=== PATIENT | female | born 1995 | race Caucasian/White ===

== ENCOUNTER 2017-04-09 05:18 | Inpatient (IN) | payer MEDICAID ==
[2017-04-09] MEDS ORDERED: PITOCIN 30 UNITS/ LR 500 ML 500 ML IV ONE (05:26)
[2017-04-09] MEDS ORDERED: OMNIPEN 2 GM / NACL 100ML 100 ML ONE (05:26)
[2017-04-09] MEDS ORDERED: Lactated Ringers 1,000 ML IV ONE (05:26)
[2017-04-09] MEDS ORDERED: STADOL 2 MG ONE (05:26)
[2017-04-09] MEDS: Lactated Ringers 1,000 ML IV SCH (05:30)
[2017-04-09] MEDS ORDERED: STADOL 2 MG IV PRN (05:46)
[2017-04-09] MEDS ORDERED: OMNIPEN 2 GM / NACL 100ML 100 ML IV ONE (05:46)
[2017-04-09] MEDS ORDERED: XYLOCAINE 1% HCL 20 ML MDV IJ PRN (05:46)
[2017-04-09] MEDS ORDERED: PITOCIN 30 UNITS/ LR 500 ML 500 ML IV SCH (06:00)
[2017-04-09 06:11] LABS: BASOPHIL % 0.2 % (0.0-0.4); Granulocytes % 66.5 % (36.0-66.0); Lymphocytes % 26.7 % (24.0-44.0); Mean Cell Volume 86.4 fl (78-100); Mean Corpuscular Hemoglobin 27.9 pg (26-32); Mean Platelet Volume 9.6 fl (6-9.5); Monocytes % 5.6 % (0.0-12.0); Platelet Count 335 K/mm3 (150-450); Red Blood Count 4.34 M/mm3 (4.1-5.4); Red Cell Distribution Width 13.4 % (11.5-14.0); White Blood Count 11.3 K/mm3 (4.0-10.5)
[2017-04-09 06:43] LABS: ALBUMIN 2.5 g/dL (3.4-5.0); ALKALINE PHOSPHATASE 241 U/L (46-116); ANION GAP 16.9 MEQ/L (5-15); BLOOD UREA NITROGEN 8 mg/dL (9-20); CHLORIDE 105 mEq/L (98-107); Carbon Dioxide 20.1 mEq/L (21-32); Glucose 86 MG/DL (70-110); Potassium 3.7 mEq/L (3.5-5.1); SGOT/AST 45 U/L (15-37); SGPT/ALT 45 U/L (12-78); SODIUM 138 mEq/L (136-145); Total Protein 6.8 gm/dL (6.4-8.2)
[2017-04-09] MEDS ORDERED: MOTRIN 400 MG ONE (07:03)
[2017-04-09] MEDS ORDERED: NORCO 5/325 MG PO PRN (07:04)
[2017-04-09] MEDS ORDERED: LANSINOH 40 GM TOP PRN (07:04)
[2017-04-09] MEDS ORDERED: Anucort-HC SUPPOSITORY PR PRN (07:04)
[2017-04-09] MEDS ORDERED: CORTISONE 1% CREAM TP PRN (07:04)
[2017-04-09] MEDS ORDERED: Dermoplast Spray TP PRN (07:04)
[2017-04-09] MEDS ORDERED: Dulcolax 10 MG SUPP PR PRN (07:04)
[2017-04-09] MEDS ORDERED: Mylicon 80MG PO PRN (07:04)
[2017-04-09] MEDS: MOTRIN 400 MG PO PRN ×2 (07:11→20:15)
[2017-04-09] MEDS: TYLENOL EXTRA STRENGTH 500 MG PO PRN ×2 (12:26→20:18)
[2017-04-09] MEDS: Colace 100 MG PO SCH (23:32)
[2017-04-10 05:36] LABS: BASOPHIL % 0.2 % (0.0-0.4); Eosinophil % 1.2 % (0.00-5.0); Granulocytes % 63.7 % (36.0-66.0); Lymphocytes % 29.1 % (24.0-44.0); Mean Cell Volume 88.4 fl (78-100); Mean Platelet Volume 9.5 fl (6-9.5); Monocytes % 5.8 % (0.0-12.0); Platelet Count 275 K/mm3 (150-450); Red Blood Count 3.37 M/mm3 (4.1-5.4); Red Cell Distribution Width 13.4 % (11.5-14.0); White Blood Count 12.3 K/mm3 (4.0-10.5)
[2017-04-10 06:06] LABS: Mean Corpuscular Hemoglobin 28.4 pg (26-32)
[2017-04-10] MEDS ORDERED: Adacel Vial IM ONE (07:07)
[2017-04-10] MEDS: FERREX 150 PO SCH ×2 (09:40→10:56)
[2017-04-10] MEDS: Colace 100 MG PO SCH ×3 (09:42→21:55)
[2017-04-10] MEDS: Lactated Ringers 1,000 ML IV SCH ×2 (10:56→10:57)
[2017-04-10] MEDS: OMNIPEN 1GM / NaCl 100ML 100 ML IV SCH ×2 (10:57→10:58)
[2017-04-10] MEDS: MOTRIN 400 MG PO PRN (17:04)
[2017-04-11 02:04] VITALS: O2SAT 99
[2017-04-11 09:43] VITALS: BP 108/52; PULSE 81
[2017-04-11] MEDS: FERREX 150 PO SCH (10:19)
[2017-04-11] MEDS: Colace 100 MG PO SCH (10:19)
== END 2017-04-11 10:59 | disposition home or self-care (01) | DRG 775 ==
LOC: INTOOBSV 05:18 → UNDOADMOB 05:18 → OBSVTOIN 05:18 → OB 05:18
PROVIDERS: ADMIT Family Medicine; ATTEND Family Medicine
PROC: 10E0XZZ Delivery of Products of Conception, External Approach (ICD-10-PCS; principal; 2017-04-09)
PROC: 10907ZC Drainage of Amniotic Fluid, Therapeutic from Products of Conception, Via Natural or Artificial Opening (ICD-10-PCS; 2017-04-09)
DX: O80 Encounter for full-term uncomplicated delivery (principal); Z3A.38 38 weeks gestation of pregnancy; Z37.0 Single live birth
CPT/HCPCS: 36415; 80053; 80307; 84550; 85025; 86850; 86900; 86901; 90715; G0378; J0290; J0595; J2590; A9270-GY